=== PATIENT | female | born 1970 | race Caucasian/White ===

== ENCOUNTER 2022-08-02 11:58 | Emergency (ER) | payer BC ==
--- OUTSIDE RECORDS SUMMARY | 2022-08-02 12:01 | XMS REPORT | Continuity of Care Document ---
:1970 Author Organization [facility] t Address [address] [place] [address] Care Team Providers Name Role Phone Arturo Tran MD Primary Care Physician [phone] Ranjan Mcguire Attending Clinician Unavailable Ivan Liriano MD Attending Clinician [phone] Payers Payer Name Policy Type Policy Number Effective Date Expiration Date S [facility] [place] 6 [id number] [address] Problems This patient has no known problems. Allergies, Adverse Reactions, Alerts This patient has no known allergies or adverse reactions. Social History Social Habit Start Date Stop Date Quantity Comments Source History of Tobacco [facility] Use [facility] Sex Assigned At [birth year] [facility] 00:00:00 00:00:00 Smoking Status Start Date Stop Date Source Tobacco smoking consumption [facility] unknown Never Smoker [facility] Medications Ordered Filled Start Stop Current Ordering Indication Dosage Frequency Signature Comments Components Source Medication Medication Date Date Medication? Clinician (SIG) Name Name Zinc Zinc No Zinc Vitamin D3 Vitamin D3 No Vitamin D3 Immunizations Ordered Immunization Filled Immunization Date Status Commen ts Source Name Name Adacel (Tdap) Adacel (Tdap) 2022-04-14 Completed [facility] 17:13:00 [facility] Vital Signs Vital Name Observation Time Observation Value Comments Source height 2022-04-14 16:20:00 71.00 [in_i] [facility] weight 2022-04-14 16:20:00 192.5 [lb_av] [facility] temperature 2022-04-14 16:20:00 97.5 [degF] [facility] bmi 2022-04-14 16:20:00 26.85 kg/m2 [facility] oximetry 2022-04-14 16:20:00 98 % [facility] respiratory rate 2022-04-14 16:20:00 18 /min [facility] blood pressure 2022-04-14 16:20:00 120 mm[Hg] [facility] systolic [facility] blood pressure 2022-04-14 16:20:00 71 mm[Hg] [facility] diastolic [facility] Procedures Procedure Date / Time Performed Performing Clinician Sourc e US SELF REFERRED HEART 2021-09-19 17:45:00 Ivan Liriano [facility] SCAN PLUS VASCULAR CT SELF REFERRED HEART 2021-09[facility]19 [facility]:59[facility] Plan of Care Planned Activity Planned Date Details Comments Source Future Scheduled 2022-06-30 HEPATITIS B VACCINES [facility] Test 04:55:44 (1 of 3 - 3-dose series) [code = HEPATITIS B VACCINES (1 of 3 - 3-dose series)] Future Scheduled 2022-06-30 COVID-19 VACCINE (#1) [facility] Test 04:55:44 [code = COVID-19 VACCINE (#1)] Future Scheduled 2022-06-30 Hepatitis C screening [facility] Test 04:55:44 (procedure) [code = 945312977] Future Scheduled 2022-06-30 Screening for [facility] Test 04:55:44 malignant neoplasm of cervix (procedure) [code = 334793690] Future Scheduled 2022-06-30 BREAST CANCER [facility] Test 04:55:44 SCREENING [code = BREAST CANCER SCREENING] Future Scheduled 2022-06-30 COLONOSCOPY SCREENING [facility] Test 04:55:44 [code = COLONOSCOPY SCREENING] Future Scheduled 2022-06-30 SHINGLES VACCINES (1 [facility] Test 04:55:44 of 2) [code = SHINGLES VACCINES (1 of 2)] Future Scheduled 2022-06-30 [facility]ACCINE [facility] 04:55:44 [code = INFLUENZA VACCINE] Encounters Start End Encounter Admission Attending Care Care Encounter Source Date/Time Date/Time Type Type Clinicians Facility Department ID 2022-04-14 Outpatient Shayla, [facility] [id number] Common 16:07:04 Avnee [id number] [facility] 2022-04-14 2022-04-14 PREV VISIT [facility] [id number] Common 00:00:00 00:00:00 EST AGE [facility] 40-64 [facility] 2021-09-19 2021-09-19 [facility] [id number] [facility] 11:00:00 23:59:00 Encounter Ivan Kelly [id number] 3.430.2.7 Hospit a .[id number] l .8 2021-09-19 2021-09-19 Outpatient [facility] [id number] [place] 00:00:00 00:00:[address] 2021-09-19 2021-09-19 Travel 1.2.840.1 [id number] [facility] 00:00:00 00:00:[id number] 3.430.2.7 0.2.7.3.698 spita .3.565432 084.8 l .8 2021-09-19 2021-09-19 Outpatient [facility] [id number] [place] 00:00:00 00:00:00 IVAN [address] 2021-08-15 2021-08-15 Travel 1.2.840.1 [id number] [facility] 00:00:00 00:00:[id number] 3.430.2.7 0.2.7.3.698 Ho [facility]ita .3.172399 084.8 l .8 2021-08-15 2021-08-15 Codyrigemma Liriano, 1.2.840.1 [id number] [facility] 00:00:00 00:00:[address] Fred[address] Kelly [id number] 3.430.2.7 Hospit a .3.740225 l .8 Results This patient has no known results.
--- NOTE | 2022-08-02 13:51 | RAD REPORT ---
EXAM DESCRIPTION: RAD - Pelvis - 08/02/2022 1:37 pm CLINICAL HISTORY: BLUNT TRAUMA COMPARISON: No comparisons TECHNIQUE: AP imaging of the pelvis was obtained. FINDINGS: No fracture of the bony pelvis identifiable. No fracture or dislocation of either proximal femur. SI joints have a normal appearance. No soft tissue abnormality seen. Phleboliths are seen anders ng the pelvic floor. IMPRESSION: Negative pelvis for acute or significant finding.
--- NOTE | 2022-08-02 13:52 | RAD REPORT ---
EXAM DESCRIPTION: RAD - Sacrum And Coccyx - 08/02/2022 1:37 pm CLINICAL HISTORY: PAIN COMPARISON: No comparisons FINDINGS: No fracture of the sacrum or coccyx identifiable. Patient has mild lower lumbar degenerati ve change. No acute SI joint or pubic symphysis finding. SI joint degenerative changes minimal. [place] t lumbar level is partially sacralized as a normal variant. IMPRESSION: No acute finding of the sacrum or coccyx.
--- NOTE | 2022-08-02 13:53 | RAD REPORT ---
EXAM DESCRIPTION: RAD - Forearm Left - 08/02/2022 1:37 pm CLINICAL HISTORY: PAIN, fall 2 days earlier COMPARISON: None. FINDINGS: No fracture is identified. There is no dislocation or periosteal reaction noted. No foreign body or other soft tissue abnormality. IMPRESSION: Negative left forearm examination.
--- NOTE | 2022-08-02 14:01 | ER ---
Nurse's Notes [facility] Name: Diana Florez Age: 52 yrs Sex: Female : 1970 Arrival Date: 08/02/2022 Time: 12:01 Bed 23 Private MD: Lydia Jones Diagnosis: Fall on same level, unspecified;Strain of other flexor muscle, fascia and tendon at forearm level, right arm, initial encounter Presentation: 08/02 12:11 Chief complaint: Tailbone and left forearm pain after mechanical fall from standing 2 hb days ago. Coronavirus screen: At this time, the client does not indicate any symptoms associated with coronavirus-19. Ebola Screen: No symptoms or risks identified at this time. Initial Sepsis Screen: Does the patient meet any 2 criteria? No. Patient's initial sepsis screen is negative. Does the patient have a suspected source of infection? No. Patient's initial sepsis screen is negative. Risk Assessment: Do you want to hurt yourself or someone else? Patient reports no desire to harm self or others. Onset of symptoms was July 31, 2022. 12:11 Method Of Arrival: Ambulatory hb 12:11 Acuity: ALEXANDRA 4 hb Triage Assessment: 12:15 General: Appears in no apparent distress. Behavior is calm, cooperative. Pain: Pain hb currently is 9 out of 10 on a pain scale. EENT: No signs and/or symptoms were reported regarding the EENT system. Neuro: Level of Consciousness is awake, alert, obeys commands, Oriented to person, place, time, situation. Cardiovascular: Patient's skin is warm and dry. Respiratory: Respiratory effort is even, unlabored, Respiratory pattern is regular, symmetrical. GI: No signs and/or symptoms were reported involving the gastrointestinal system. : No signs and/or symptoms were reported regarding the genitourinary system. Derm: Skin is pink, warm \T\ dry. Musculoskeletal: Reports pain in coccyx and left forearm. Historical: - Allergies: 12:15 No Known Allergies; hb - Immunization history:: Adult Immunizations up to date. - Social history:: Smoking status: Patient denies any tobacco usage or history of. Screenin:16 Abuse screen: Denies threats or abuse. Denies injuries from another. Nutritional hb screening: No deficits noted. Tuberculosis screening: No symptoms or risk factors identified. Fall Risk None identified. Assessment: 12:16 General: See triage assessment. hb 13:45 Reassessment: Patient appears in no apparent distress at this time. Patient and/or hb family updated on plan of care and expected duration. Pain level reassessed. Patient is alert, oriented x 3, equal unlabored respirations, skin warm/dry/pink. Vital Signs: 12:11 BP 147 / 89; Pulse 74; Resp 16; Pulse Ox 100% on R/A; Weight 88.9 kg; Height 5 ft. 10 hb in. (177.80 cm); Pain 9/10; 12:11 Body Mass Index 28.12 (88.90 kg, 177.80 cm) hb ED Course: 12:01 Patient arrived in ED. rg4 12:01 Ldyia Jones MD is Private Physician. rg4 12:06 Juan Bui MD is Attending Physician. ramonita 12:11 Arm band placed on. hb 12:15 Triage completed. hb 12:16 Patient has correct armband on for positive identification. hb 12:16 No provider procedures requiring assistance completed. Patient did not have IV access hb during this emergency room visit. 12:30 Eveline Cartwright, RN is Primary Nurse. hb 13:38 Pelvis XRAY In Process Unspecified. EDMS 13:38 Sacrum And Coccyx XRAY In Process Unspecified. EDMS 13:38 Forearm Left XRAY In Process Unspecified. EDMS 13:59 Lydia Jones MD is Referral Physician. ramonita 13:59 Ian Palencia MD is Referral Physician. ramonita Administered Medications: 14:09 Not Given (Patient Refused): Motrin (ibuprofen) 600 mg PO once hb Medication: 12:16 VIS not applicable for this client. hb Outcome: 14:01 Discharge ordered by . ramonita 14:10 Discharged to home ambulatory. hb 14:10 Condition: stable 14:10 Discharge instructions given to patient, Instructed on discharge instructions, follow up and referral plans. medication usage, Demonstrated understanding of instructions, follow-up care, medications, Prescriptions given X 2. 14:10 Patient left the ED. hb Signatures: Dispatcher [employer] EDJuan Naidu MD MD cha Baxter, Heather, RN RN Marissa Stokes rg4 Corrections: (The following items were deleted from the chart) 12:16 12:11 BP 162 / 88; Pulse 74bpm; Resp 16bpm; Pulse Ox 100% RA; 88.9 kg; Height 5 ft. 10 hb in.; BMI: 28.1; Pain 9/10; hb
--- NOTE | 2022-08-02 14:01 | EDPHYS ---
Physician Documentation [facility] Name: Diana Florez Age: 52 yrs Sex: Female : 1970 Arrival Date: 08/02/2022 Time: 12:01 Bed 23 Private MD: Lydia Jones ED Physician Juan Bui HPI: 08/02 13:53 This 52 yrs old Female presents to ER via Ambulatory with complaints of Pain ramonita from Fall on Wednesday. 13:53 The patient or guardian complains of decreased range of motion, pain, that is acute. ramonita The complaints affect the left antecubital area, dorsal aspect of left forearm, left elbow and palmar aspect of left forearm. Context: The problem was sustained at home, resulted from a fall. Onset: The symptoms/episode began/occurred 2 day(s) ago. Treatment prior to arrival includes: REST. Modifying factors: The symptoms are alleviated by remaining still, the symptoms are aggravated by movement. The patient presents with pain and an injury. The symptoms are located in the coccyx area. Onset: The symptoms/episode began/occurred 2 day(s) ago. The pain does not radiate. Historical: - Allergies: 12:15 No Known Allergies; hb - Immunization history:: Adult Immunizations up to date. - Social history:: Smoking status: Patient denies any tobacco usage or history of. ROS: 13:55 Constitutional: Negative for fever, chills, and weight loss, Eyes: Negative for injury, ramonita pain, redness, and discharge, ENT: Negative for injury, pain, and discharge, Neck: Negative for injury, pain, and swelling, Cardiovascular: Negative for chest pain, palpitations, and edema, Respiratory: Negative for shortness of breath, cough, wheezing, and pleuritic chest pain, Abdomen/GI: Negative for abdominal pain, nausea, vomiting, diarrhea, and constipation, : Negative for injury, bleeding, discharge, and swelling, Skin: Negative for injury, rash, and discoloration, Neuro: Negative for headache, weakness, numbness, tingling, and seizure, Psych: Negative for depression, anxiety, suicide ideation, homicidal ideation, and hallucinations, Allergy/Immunology: Negative for hives, rash, and allergies, Endocrine: Negative for neck swelling, polydipsia, polyuria, polyphagia, and marked weight changes, Hematologic/Lymphatic: Negative for swollen nodes, abnormal bleeding, and unusual bruising. 13:55 Back: Positive for decreased range of motion, pain at rest, of the sacrum. 13:55 MS/extremity: Positive for decreased range of motion, pain, tenderness, of the left antecubital area, dorsal aspect of left forearm, left elbow and palmar aspect of left forearm. Exam: 13:55 Constitutional: This is a well developed, well nourished patient who is awake, alert, ramonita and in no acute distress. Head/Face: Normocephalic, atraumatic. Eyes: Pupils equal round and reactive to light, extra-ocular motions intact. Lids and lashes normal. Conjunctiva and sclera are non-icteric and not injected. Cornea within normal limits. Periorbital areas with no swelling, redness, or edema. ENT: Nares patent. No nasal discharge, no septal abnormalities noted. Tympanic membranes are normal and external auditory canals are clear. Oropharynx with no redness, swelling, or masses, exudates, or evidence of obstruction, uvula midline. Mucous membranes moist. Neck: Trachea midline, no thyromegaly or masses palpated, and no cervical lymphadenopathy. Supple, full range of motion without nuchal rigidity, or vertebral point tenderness. No Meningismus. Chest/axilla: Normal chest wall appearance and motion. Nontender with no deformity. No lesions are appreciated. Cardiovascular: Regular rate and rhythm with a normal S1 and S2. No gallops, murmurs, or rubs. Normal PMI, no JVD. No pulse deficits. Respiratory: Lungs have equal breath sounds bilaterally, clear to auscultation and percussion. No rales, rhonchi or wheezes noted. No increased work of breathing, no retractions or nasal flaring. Abdomen/GI: Soft, non-tender, with normal bowel sounds. No distension or tympany. No guarding or rebound. No evidence of tenderness throughout. Female : Normal external genitalia. Skin: Warm, dry with normal turgor. Normal color with no rashes, no lesions, and no evidence of cellulitis. MS/ Extremity: Pulses equal, no cyanosis. Neurovascular intact. Full, normal range of motion. Neuro: Awake and alert, GCS 15, oriented to person, place, time, and situation. Cranial nerves II-XII grossly intact. Motor strength 5/5 in all extremities. Sensory grossly intact. Cerebellar exam normal. Normal gait. Psych: Awake, alert, with orientation to person, place and time. Behavior, mood, and affect are within normal limits. 13:55 Musculoskeletal/extremity: ROM: intact in all extremities, full active range of motion, full passive range of motion, Circulation is intact in all extremities. Sensation intact. Compartment Syndrome exam of affected extremity: is normal. Joints: All joints are normal except the left elbow displays limited range of motion, pain at rest, painful range of motion, tenderness, DVT Exam: no swelling, negative Homans' sign noted on exam, no appreciated bluish discoloration, no erythema, no increased warmth, pain, tenderness. Vital Signs: 12:11 BP 147 / 89; Pulse 74; Resp 16; Pulse Ox 100% on R/A; Weight 88.9 kg; Height 5 ft. 10 hb in. (177.80 cm); Pain 9/10; 12:11 Body Mass Index 28.12 (88.90 kg, 177.80 cm) hb MDM: 12:06 Patient medically screened. ramonita 13:57 Differential diagnosis: closed fracture, contusion, tendonitis, arthritis. Differential ramonita diagnosis: contusion, fracture, sprain, strain. Data reviewed: vital signs, nurses notes, radiologic studies, plain films. Data interpreted: monitoring engineer: not applicable for this patient encounter. rate is 74 beats/min, rhythm is regular, Pulse oximetry: on room air is 100 %. Test interpretation: by ED physician or midlevel provider: plain radiologic studies. Counseling: I had a detailed discussion with the patient and/or guardian regarding: the historical points, exam findings, and any diagnostic results supporting the discharge/admit diagnosis, radiology results, the need for outpatient follow up, for definitive care, a orthopedic surgeon. 08/02 12:25 Order name: Pelvis XRAY; Complete Time: 13:58 ramonita 08/02 12:25 Order name: Sacrum And Coccyx XRAY; Complete Time: 13:58 ramonita 08/02 12:25 Order name: Forearm Left XRAY; Complete Time: 13:58 ramonita Administered Medications: 14:09 Not Given (Patient Refused): Motrin (ibuprofen) 600 mg PO once hb Disposition Summary: 08/02/22 14:01 Discharge Ordered Location: Home ramonita Problem: new ramonita Symptoms: have improved ramonita Condition: Stable ramonita Diagnosis - Fall on same level, unspecified ramonita - Strain of other flexor muscle, fascia and tendon at forearm level, right arm, ramonita initial encounter Followup: ramonita - With: Lydia Jones MD - When: 2 - 3 days - Reason: Recheck today's complaints, Continuance of care, Re-evaluation by your physician Followup: ramonita - With: Ian Palencia MD - When: 2 - 3 days - Reason: Recheck today's complaints, Continuance of care, Re-evaluation by your physician Discharge Instructions: - Discharge Summary Sheet ramonita - Fall Prevention in the Home, Adult ramonita - Muscle Strain ramonita - Muscle Strain, [id number] ramonita - RICE Therapy for Routine Care of Injuries ramonita Forms: - Medication Reconciliation Form ramonita - Thank You Letter ramonita - Antibiotic Education ramonita - Prescription Opioid Use ramonita Prescriptions: - Diclofenac Sodium 75 mg Oral tablet,delayed release (DR/EC) - take 1 tablet by ORAL route 2 times per day; 20 tablet; Refills: 0, Product ramonita Selection Permitted - Tylenol-Codeine #3 300 mg-30 mg Oral - take 2 tablet by ORAL route every 6 hours; 20 tablet; Refills: 0, Product ramonita Selection Permitted Signatures: Dispatcher [employer] EDJuan Naidu MD MD cha Baxter, Heather, RN RN
[2022-08-02 14:38] VITALS: BP 147/89; O2SAT 100
== END 2022-08-02 14:10 | disposition home or self-care (01) ==
LOC: ER 11:58
DX: S56.211A Strain of other flexor muscle, fascia and tendon at forearm level, right arm, initial encounter (principal)
CPT/HCPCS: 72170; 72220; 99283